=== PATIENT | male | born 1975 ===

== ENCOUNTER 2017-11-15 00:35 | Emergency (ER) | payer BC ==
--- NOTE | 2017-11-15 01:16 | EDM.PDOC ---
ED HPI GENERAL MEDICAL PROBLEM - General Chief Complaint: Neurological Problem Stated Complaint: HEAD AND BACH PAIN Time Seen by Provider: 11/15/17 00:50 Source of Information: Reports: Patient, Family History Limitations: Reports: No Limitations - History of Present Illness INITIAL COMMENTS - FREE TEXT/NARRATIVE: This is a 42yo M from [place] who was recently seen in the ER at [facility] for the same concerns of headache and low back pain. He states his headache is 10/ 10 and not much has improved his symptoms. He has seen Dr. Cleveland Neurosurgery for his headache and it is believed to be a spinal headache. Patient has pain meds but states it only helps a little. He is here until for a reunion and will be back in [place] on . Duration: Week(s):, Constant, Getting Worse (from 10/25 now 02/24) Location: Reports: Head Severity: Severe Improves with: Reports: None Worsens with: Reports: None Associated Symptoms: Reports: No Other Symptoms Lower Headache Pain Score (Numeric/FACES): 10 - Related Data Allergies Allergy/AdvReac Type Severity Reaction Status Date / Time No Known Allergies Allergy Verified 11/15/17 00:51 ED ROS GENERAL - Review of Systems Review Of Systems: ROS reveals no pertinent complaints other than HPI. - Physical Exam Exam: See Below Exam Limited By: No Limitations General Appearance: Alert, WD/WN, Moderate Distress Ears: Normal External Exam Head Exam: Atraumatic, Normocephalic Neck: Normal Inspection Respiratory/Chest: No Respiratory Distress, Lungs Clear Cardiovascular: Normal Peripheral Pulses, Regular Rate, Rhythm Neuro Exam (Abbreviated): Alert, Oriented, CN II-XII Intact, Normal Gait, Normal Reflexes, No Motor/Sensory Deficits Course - Vital Signs Last Recorded V/S: Last Vital Signs Temp 36.6 C 11/15/17 00:54 Pulse 101 H 11/15/17 00:54 Resp 18 11/15/17 00:54 BP 146/94 H 11/15/17 00:54 Pulse Ox 100 11/15/17 00:54 - Orders/Labs/Meds Labs: Laboratory Tests 11/15/17 11/15/17 Range/Units 02:10 02:10 WBC 17.0 H (4.0-11.0) K/uL RBC 4.77 (4.50-6.50) M/uL Hgb 14.6 (13.0-18.0) g/dL Hct 42.0 (40.0-54.0) % MCV 88 (76-96) fL MCH 30.6 (27.0-32.0) pg MCHC 34.8 (31.0-35.0) g/dL RDW 13.1 (11.0-16.0) % Plt Count 262 (150-400) K/uL MPV 10.0 (6.0-10.0) fL Neut % (Auto) 75.4 H (45.0-70.0) % Lymph % (Auto) 15.4 L (20.0-40.0) % [place] % (Auto) 8.1 (3.0-10.0) % Eos % (Auto) 1.0 (1.0-5.0) % Baso % (Auto) 0.1 (0.0-0.5) % Neut # (Auto) 12.82 H (2.00-7.50) K/uL Lymph # (Auto) 2.62 (1.50-4.00) K/uL [place] # (Auto) 1.37 H (0.20-0.80) K/uL Eos # (Auto) 0.17 (0.04-0.40) K/uL Baso # (Auto) 0.02 (0.02-0.10) K/uL Sodium 143 (136-145) mmol/L Potassium 3.8 (3.5-5.1) mmol/L Chloride 107 (98-107) mmol/L Carbon Dioxide 26.8 (21.0-32.0) mmol/L Anion Gap 13.0 (5.0-15.0) mmol/L BUN 14 (8-26) mg/dL Creatinine 0.94 (0.70-1.30) mg/dL Est Cr Clr Drug Dosing TNP Estimated GFR (MDRD) > 60 (>60) MLS/MIN BUN/Creatinine Ratio 14.9 (6-25) Glucose 118 H (74-100) mg/dL Calcium 8.4 L (8.5-10.1) mg/dL Total Bilirubin 0.4 (0.0-1.0) mg/dL AST 15 (15-37) U/L ALT 33 (12-78) U/L Alkaline Phosphatase 66 (46-116) U/L Total Protein 6.5 (6.4-8.2) g/dL Albumin 3.2 L (3.4-5.0) g/dL Globulin 3.3 (2.2-4.2) g/dL Albumin/Globulin Ratio 1.0 (0.8-2.0) Meds: Medications Discontinued Medications Generic Name Dose Route Start Last Admin Trade Name Freq PRN Reason Stop Dose Admin Hydromorphone HCl Confirm 11/15/17 01:53 11/15/17 02:22 Dilaudid Administered 11/15/17 01:54 Not Given Dose 4 mg .ROUTE .STK-MED ONE Hydromorphone HCl 1 mg 11/15/17 02:21 11/15/17 02:00 Dilaudid IVPUSH 11/15/17 02:22 1 mg ONETIME ONE Administration Hydromorphone HCl Confirm 11/15/17 03:06 11/15/17 03:14 Dilaudid Administered 11/15/17 03:07 Not Given Dose 4 mg .ROUTE .STK-MED ONE Hydromorphone HCl 2 mg 11/15/17 03:12 11/15/17 03:06 Dilaudid IVPUSH 11/15/17 03:13 2 mg ONETIME ONE Administration Lactated Ringer's 1,000 mls @ 999 mls/hr 11/15/17 01:26 11/15/17 01:28 Ringers, Lactated IV 11/15/17 02:26 999 mls/hr BOLUS ONE Administration Iopamidol 100 ml 11/15/17 02:20 11/15/17 02:45 Isovue-300 (61%) IV 11/16/17 02:21 100 ml . DIRECTED PRN Administration RADIOLOGY EXAM Ketorolac Tromethamine Confirm 11/15/17 01:27 11/15/17 01:26 Toradol Administered 11/15/17 01:28 Not Given Dose 60 mg .ROUTE .STK-MED ONE Ketorolac Tromethamine 60 mg 11/15/17 01:25 11/15/17 01:27 Toradol IM 11/15/17 01:26 60 mg ONETIME ONE Administration Sodium Chloride 50 ml 11/15/17 02:30 11/15/17 02:45 Normal Saline FLUSH 50 ml ONETIME MAKENNA Administration - Re-Assessments/Exams Free Text/Narrative Re-Assessment/Exam: Toradol and IVF started. No improvement of Headache. 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 Patient to have labs and workup and CT head w and w/o. Patient to be given options for pain management and Blood patch. Dr. Cleveland has ordered Blood patch already but it was not done for some reason. Patient understands that this patch may be the most beneficial therapy. Dilaudid was given 1mg IV and reduced the ENNIS to a 1/10. Discussed plan of care with Dr. Cleveland extensively. Departure - Departure Time of Disposition: 04:00 Disposition: Home, Self-Care 01 Condition: Fair Clinical Impression: Spinal headache - Discharge Information Referrals: PCP,None [Primary Care Provider] - Forms: ED Department Discharge Additional Instructions: Continue to take Oxycodone as previously ordered. Follow up for Blood patch procedure when able Discussed continue supportive care and schedule medications to keep headache from getting worse. Discussed close monitoring and f/u in ER as needed. F/u with Neurosurgery and with Anesthesia for blood patch.
[2017-11-15] MEDS ORDERED: Ketorolac 60 MG/2 ML SDV IM ONE (01:25)
[2017-11-15] MEDS ORDERED: Lactated Ringers 1,000 ML IV ONE (01:26)
[2017-11-15] MEDS ORDERED: Ketorolac 60 MG/2 ML SDV ONE (01:27)
[2017-11-15] MEDS ORDERED: HYDROmorphone 4 MG/ML Syringe ONE ×2 (01:53→03:06)
[2017-11-15] MEDS ORDERED: Iopamidol 612 MG/ML 100 ML Bottle IV PRN (02:20)
[2017-11-15] MEDS ORDERED: HYDROmorphone 2 MG/ML Syringe IVPUSH ONE ×2 (02:21→03:12)
[2017-11-15] MEDS ORDERED: Sodium Chloride 0.9% 50 ML SDV FLUSH SCH (02:30)
--- NOTE | 2017-11-15 10:07 | CT ---
UNENHANCED AND ENHANCED BRAIN CT, 11/15/17 Multislice acquisition through the brain without and with IV contrast was performed. No masses or mass effect. No intracranial hemorrhage. No evidence of acute or subacute infarct. No abnormal enhancement. No osseous abnormalities. IMPRESSION: Normal exam. [id number] [facility]
== END 2017-11-15 03:15 | disposition home or self-care (01) ==
LOC: LB.ED 00:35
DX: R51 Headache (principal)
CPT/HCPCS: 36415; 70470; 80053; 85025; 96372; 96374; 96376; 99284; J1170; J1885; J7120; Q9967